=== PATIENT | male | born 1955 | race Caucasian/White ===

== ENCOUNTER 2018-07-27 06:50 | Day surgery (SDC) | payer OTHER ==
[~2018-07-27] VITALS: Ht 177.8 cm; Wt 98.9 kg
[~2018-07-27 06:50] MED LIST: ACETAMINOPHEN; LANS30CA53 PO; METO-290 PO
[2018-07-27] MEDS ORDERED: SIMETHICONE 40 MG/0.6 ML ML ONE (07:04)
[2018-07-27] MEDS: MEPERIDINE HCL/PF 100 MG/ML AMP ONE ×2 (08:32→08:36)
[2018-07-27] MEDS: MIDAZOLAM HCL 5 MG/5 ML VIAL ONE ×3 (08:32→08:36)
[2018-07-27 10:34] VITALS: BP_SYST 111
== END 2018-07-27 09:40 | disposition home or self-care (01) ==
LOC: SMU 06:50 → SDS 06:50
PROVIDERS: ATTEND Colon & Rectal Surgery
DX: D12.5 Benign neoplasm of sigmoid colon (principal); K63.5 Polyp of colon; K57.30 Diverticulosis of large intestine without perforation or abscess without bleeding; Z98.0 Intestinal bypass and anastomosis status; Z88.8 Allergy status to other drugs, medicaments and biological substances
CPT/HCPCS: 45380; 88305; J2175; J2250